=== PATIENT | male | born 1975 | race Hispanic/Latino ===

== ENCOUNTER → 2024-01-09 | Outpatient (CLI) | payer OTHER ==
[2024-01-09 21:45] VITALS: PULSE 102; RESP 16
[2024-01-09 22:00] VITALS: PULSE 103; RESP 18
[2024-01-09 22:30] VITALS: PULSE 92; RESP 14
[2024-01-09 23:02] VITALS: PULSE 80; RESP 12
[2024-01-09 23:30] VITALS: PULSE 68; RESP 16
[2024-01-10] VITALS (11 sets, daily range): PULSE 50–84; RESP 12–20
== END | disposition home or self-care (01) ==
LOC: SLP 19:08
PROVIDERS: ATTEND Nurse Practitioner Family
DX: G47.33 Obstructive sleep apnea (adult) (pediatric) (principal)
CPT/HCPCS: 95810

== ENCOUNTER → 2024-03-06 | Outpatient (CLI) | payer OTHER ==
[2024-03-06] VITALS (9 sets, daily range): PULSE 65–96; RESP 5–19
[2024-03-07] VITALS (15 sets, daily range): PULSE 59–89; RESP 5–18
== END | disposition home or self-care (01) ==
LOC: SLP 20:31
PROVIDERS: ATTEND Nurse Practitioner Family
DX: G47.33 Obstructive sleep apnea (adult) (pediatric) (principal)
CPT/HCPCS: 95811